=== PATIENT | female | born 1970 | race Caucasian/White ===

== ENCOUNTER 2023-05-15 20:19 | Emergency (ER) | payer OTHER ==
[~2023-05-15] VITALS: Ht 160 cm; Wt 52.0 kg
[2023-05-15 20:50] VITALS: TEMP 98.5; O2SAT 98
[2023-05-15] MEDS ORDERED: ACETAMINOPHEN WITH CODEINE 300/30MG TABLET PO ONE (21:00)
[2023-05-15] MEDS ORDERED: SILVER SULFADIAZINE 1% CREAM 25GM TOP ONE (21:00)
[2023-05-15] MEDS ORDERED: TETANUS, DIPHTHERIA, PERTUSSIS VAC/PF 0.5ML (>10YR OLD) IM ONE ×2 (21:00→22:10)
[2023-05-15] MEDS ORDERED: SILVER SULFADIAZINE 1% CREAM 25GM TOP NR (21:15)
[2023-05-15] MEDS ORDERED: IBUP-2029 MT (21:22)
[2023-05-15] MEDS ORDERED: BO1 TP (21:22)
[2023-05-15 22:02] VITALS: BP 129/62; PULSE 80; RESP 16
[2023-05-15] MEDS ORDERED: ACETAMINOPHEN WITH CODEINE 300/30MG TABLET PO NR (22:02)
== END 2023-05-15 22:26 | disposition home or self-care (01) ==
LOC: ER 20:19
DX: T25.122A Burn of first degree of left foot, initial encounter (principal); T30.0 Burn of unspecified body region, unspecified degree; T31.11 Burns involving 10-19% of body surface with 10-19% third degree burns; T79.9XXA Unspecified early complication of trauma, initial encounter
CPT/HCPCS: 16000; 16020; 90471; 90715; 99283